=== PATIENT | female | born 1970 ===

== ENCOUNTER 2018-05-21 | Inpatient (IN) | payer OTHER ==
[~2018-05-21] VITALS: Ht 157.5 cm; Wt 52.2 kg
[~2018-05-21] MED LIST: ACCU-CHEK COMB1 EACH SUBCUTANEO; LANTUS; SYNTHROID175 MCG PO; [UNRECOGNIZED DRUG - OTHER]
== END 2018-05-22 09:00 | disposition home or self-care (01) | DRG 585 ==
LOC: CIR.AMB → EDSTATUS → CIR.AMB 05:45 → O/R 07:00 → CIR.AMB 07:00 → SURG 13:17 → RECOVERY 13:17 → O/R 13:17 → SURG 13:59 → CIR.AMB 18:26 → O/R 05-22 09:00 → CIR.AMB 05-22 09:00 → O/R 05-22 13:02 → SURG 05-22 13:02
PROVIDERS: Plastic Surgery; ADMIT Surgery
PROC: 0HTV0ZZ Resection of Bilateral Breast, Open Approach (ICD-10-PCS; principal; 2018-05-21)
PROC: 0HRV0JZ Replacement of Bilateral Breast with Synthetic Substitute, Open Approach (ICD-10-PCS; 2018-05-21)
PROC: 0HHV0NZ Insertion of Tissue Expander into Bilateral Breast, Open Approach (ICD-10-PCS; 2018-05-21)
PROC: 0HPU0JZ Removal of Synthetic Substitute from Left Breast, Open Approach (ICD-10-PCS; 2018-05-21)
PROC: 0HPT0JZ Removal of Synthetic Substitute from Right Breast, Open Approach (ICD-10-PCS; 2018-05-21)
DX: Z40.01 Encounter for prophylactic removal of breast (principal); E10.9 Type 1 diabetes mellitus without complications; E03.8 Other specified hypothyroidism; Z96.41 Presence of insulin pump (external) (internal); Z15.01 Genetic susceptibility to malignant neoplasm of breast; Z88.0 Allergy status to penicillin

== ENCOUNTER 2018-07-12 05:50 | Day surgery (SDC) | payer OTHER ==
[~2018-07-12 05:50] MED LIST changes: +PAXIL20 MG PO
== END 2018-07-12 13:15 | disposition home or self-care (01) ==
LOC: CIR.AMB 05:50
PROVIDERS: Plastic Surgery
PROC: 0HPT0JZ Removal of Synthetic Substitute from Right Breast, Open Approach (ICD-10-PCS; 2018-07-12)
PROC: 0HRV0JZ Replacement of Bilateral Breast with Synthetic Substitute, Open Approach (ICD-10-PCS; 2018-07-12)
PROC: 0H0V0KZ Alteration of Bilateral Breast with Nonautologous Tissue Substitute, Open Approach (ICD-10-PCS; 2018-07-12)
PROC: 0HNV0ZZ Release Bilateral Breast, Open Approach (ICD-10-PCS; 2018-07-12)
PROC: 0HPU0JZ Removal of Synthetic Substitute from Left Breast, Open Approach (ICD-10-PCS; principal; 2018-07-12 07:00)
DX: Z90.13 Acquired absence of bilateral breasts and nipples (principal); Z15.01 Genetic susceptibility to malignant neoplasm of breast
CPT/HCPCS: 19330; 19342; 19366; 19370; C1789

== ENCOUNTER 2018-09-02 07:50 | Day surgery (SDC) | payer OTHER | END 2018-09-02 14:35 | disposition home or self-care (01) | LOC: AMB-ENDOS 07:50 | DX: K64.0 First degree hemorrhoids (principal) ==

== ENCOUNTER 2019-06-28 05:40 | Day surgery (SDC) | payer OTHER ==
[~2019-06-28 05:40] MED LIST changes: +CLONAZEPAM0.5 MG PO; +VOLTAREN100 GM
== END 2019-06-28 14:20 | disposition home or self-care (01) ==
LOC: CIR.AMB 05:40 → ADM 09:00 → CIR.AMB 10:00
DX: G56.01 Carpal tunnel syndrome, right upper limb (principal); M65.331 Trigger finger, right middle finger; M65.341 Trigger finger, right ring finger